=== PATIENT | female | born 1990 | race Caucasian/White ===

== ENCOUNTER 2020-01-24 10:38 | Emergency (ER) | payer SELFPAY | END 2020-01-24 11:17 | disposition home or self-care (01) | LOC: NAV ERS 10:38 | DX: K04.4 Acute apical periodontitis of pulpal origin (principal); K02.9 Dental caries, unspecified; K03.81 Cracked tooth; F31.9 Bipolar disorder, unspecified; F41.9 Anxiety disorder, unspecified; F17.210 Nicotine dependence, cigarettes, uncomplicated | CPT/HCPCS: 99282 ==